=== PATIENT | female | born 1965 | race Hispanic/Latino ===

== ENCOUNTER 2019-02-05 21:12 | Emergency (ER) | payer SELFPAY ==
[~2019-02-05] VITALS: Ht 157.5 cm; Wt 76.4 kg
[2019-02-05] MEDS ORDERED: ALLE180T33 PO (21:31)
[2019-02-05] MEDS ORDERED: PROAAER10 INH (21:31)
[2019-02-05] MEDS ORDERED: IPRATROPIUM 0.5MG/ALBUTEROL 2.5MG INH SOL UD 3ML (DUONEB)(J7620) NEB ONE ×2 (21:45)
[2019-02-05] MEDS ORDERED: methylPREDNISolone INJ 125 MG/2 ML VIAL (J2930) IV ONE (21:45)
[2019-02-05] MEDS ORDERED: VENTAER INH (22:47)
[2019-02-05] MEDS ORDERED: PRED20TA PO (22:47)
[2019-02-05 22:49] VITALS: BP 154/99
--- NOTE | 2019-02-06 09:48 | REP ---
Dyspnea, coughing and wheezing. FINDINGS: The superior mediastinal structures are midline. The cardiac silhouette is unremarkable in size, shape, and position. The diaphragmatic surfaces of the lungs are regular, and the costophrenic angles are clear. The pulmonary saleem are clear. The imaged osseous structures are intact. IMPRESSION: There is no acute cardiopulmonary disease. Electronically Signed by Mendoza Klein DO 02/06/2019 01:46 P
--- NOTE | 2019-02-06 20:54 | ECGEPIP ---
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
== END 2019-02-05 23:04 | disposition home or self-care (01) ==
LOC: M ED 21:12
DX: J45.901 Unspecified asthma with (acute) exacerbation (principal); R00.0 Tachycardia, unspecified; R94.31 Abnormal electrocardiogram [ECG] [EKG]; Z79.51 Long term (current) use of inhaled steroids; Z87.891 Personal history of nicotine dependence
CPT/HCPCS: 71046; 93005; 94640; 96374; 99284; J2930